=== PATIENT | female | born 1940 | race Caucasian/White ===

== ENCOUNTER 2020-09-22 18:43 | Observation (INO) ==
[2020-09-22 19:46] LABS: Basophils % 0.3 %; Eosinophils # 0.1 K/mcL (0.0-0.6); Eosinophils % 0.7 %; Hemoglobin 13.6 g/dL (11.5-15.4); Immature Granulocytes % 0.7 % (0-4); Lymphocytes # 1.3 K/mcL (0.6-4.6); Lymphocytes % 11.9 %; Mean Corpuscular Hemoglobin 32.2 pg (28.0-33.3); Mean Corpuscular Volume 94.8 fL (83.0-100.0); Monocytes # 0.6 K/mcL (0.0-1.3); Platelet Count 218 K/mcL (140-400); Red Blood Count 4.22 M/mcL (3.82-4.97); Red Cell Distribution Width 12.2 % (11.5-14.5); Segmented Neutrophils % 81.4 %
[2020-09-22] MEDS ORDERED: Ondansetron 4 MG/2 ML VIAL IVP ONE (19:49)
[2020-09-22] MEDS ORDERED: *HR* HYDROmorphone (PF) 1 MG/ML SYRINGE IVP ONE (19:49)
[2020-09-22 20:04] LABS: Alanine Aminotransferase 20 Units/L (7-52); Albumin 4.3 g/dL (3.5-5.7); Albumin/Globulin Ratio 1.4 (1.1-2.2); Alkaline Phosphatase 85 Units/L (34-104); Aspartate Amino Transferase 29 Units/L (13-39); BUN/Creatinine Ratio 35 (6-26); Bilirubin,Total 0.5 mg/dL (0.3-1.0); Blood Urea Nitrogen 30 mg/dL (8-23); Carbon Dioxide 28 mEq/L (23-29); Chloride 104 mEq/L (98-107); Glucose 111 mg/dL (70-105); Osmolality,Calculated 295 (280-300); Potassium 4.1 mEq/L (3.5-5.1); Sodium 139 mEq/L (136-145); Total Protein 7.3 g/dL (6.4-8.9); eGFR For African Americans > 60 (> 60); eGFR For Non-African Americans > 60 (> 60)
[2020-09-22] MEDS ORDERED: Naloxone 0.4 MG/ML INJ IVP PRN (21:55)
[2020-09-22] MEDS ORDERED: *HR* HYDROcodone/Acet 5/325 mg TABLET PO PRN (21:55)
[2020-09-22] MEDS ORDERED: Morphine Sulfate Immed Rel 30 MG TABLET PO PRN (21:55)
[2020-09-23] MEDS ORDERED: *HR* HYDROcodone/Acet 5/325 mg TABLET PO PRN (08:38)
[2020-09-23] MEDS: Multivit/Ca/Min/Fe/FA 1 TAB TABLET PO SCH (09:12)
[2020-09-23] MEDS: Aspirin 81 MG TAB.CHEW PO SCH (09:12)
[2020-09-23 13:20] LABS: Bilirubin,Urine Negative (Negative); Blood,Urine Trace-lysed (Negative); Clarity,Urine Clear (Clear); Color,Urine Yellow (Yellow); Glucose,Urine (UA) Normal (Normal); Ketones,Urine Negative (Negative); Leukocyte Esterase,Urine Negative (Negative); Nitrite,Urine Negative (Negative); Protein,Urine Negative (Neg-Trace); Urobilinogen,Urine Normal (Normal)
[2020-09-23] MEDS: *HR* HYDROcodone/Acet 5/325 mg TABLET PO PRN ×2 (15:51→22:27)
[2020-09-23] MEDS: 0.9 % Sodium Chloride 1,000 ML IVC SCH (22:27)
[2020-09-23] MEDS: Sennosides 8.6 MG TABLET PO SCH (22:27)
[2020-09-24] MEDS: *HR* Enoxaparin 40 MG/0.4 ML SYRINGE SQ SCH (06:11)
[2020-09-24] MEDS: Ondansetron 4 MG/2 ML VIAL IVP PRN (06:15)
[2020-09-24] MEDS: Aspirin 81 MG TAB.CHEW PO SCH (08:17)
[2020-09-24] MEDS: Sennosides 8.6 MG TABLET PO SCH ×2 (08:17→21:38)
[2020-09-24] MEDS: *HR* HYDROcodone/Acet 5/325 mg TABLET PO PRN ×2 (08:17→15:55)
[2020-09-24] MEDS: Multivit/Ca/Min/Fe/FA 1 TAB TABLET PO SCH (08:17)
[2020-09-24] MEDS: polyethylene glycoL 3350 17 GM POWD.PACK PO SCH (08:18)
[2020-09-24] MEDS: 0.9 % Sodium Chloride 1,000 ML IVC SCH (11:08)
[2020-09-25 05:26] LABS: Hematocrit 35.2 % (35.3-44.9); Hemoglobin 11.7 g/dL (11.5-15.4); Mean Corpuscular HGB Conc 33.2 g/dL (31.6-35.5); Mean Corpuscular Hemoglobin 32.1 pg (28.0-33.3); Mean Corpuscular Volume 96.7 fL (83.0-100.0); Platelet Count 158 K/mcL (140-400); Red Blood Count 3.64 M/mcL (3.82-4.97); Red Cell Distribution Width 12.4 % (11.5-14.5); White Blood Count 8.4 K/mcL (4.3-11.1)
[2020-09-25] MEDS: *HR* Enoxaparin 40 MG/0.4 ML SYRINGE SQ SCH (05:30)
[2020-09-25 05:42] LABS: Alanine Aminotransferase 11 Units/L (7-52); Albumin 3.4 g/dL (3.5-5.7); Albumin/Globulin Ratio 1.3 (1.1-2.2); Alkaline Phosphatase 72 Units/L (34-104); Aspartate Amino Transferase 21 Units/L (13-39); BUN/Creatinine Ratio 35 (6-26); Bilirubin,Total 0.4 mg/dL (0.3-1.0); Blood Urea Nitrogen 23 mg/dL (8-23); Calcium 8.8 mg/dL (8.6-10.3); Carbon Dioxide 28 mEq/L (23-29); Chloride 108 mEq/L (98-107); Globulin 2.7 g/dL (2.4-3.5); Glucose 121 mg/dL (70-105); Osmolality,Calculated 299 (280-300); Potassium 4.2 mEq/L (3.5-5.1); Sodium 142 mEq/L (136-145); Total Protein 6.1 g/dL (6.4-8.9); eGFR For African Americans > 60 (> 60); eGFR For Non-African Americans > 60 (> 60)
[2020-09-25] MEDS: polyethylene glycoL 3350 17 GM POWD.PACK PO SCH (08:02)
[2020-09-25] MEDS: Sennosides 8.6 MG TABLET PO SCH ×2 (08:02→20:33)
[2020-09-25] MEDS: Aspirin 81 MG TAB.CHEW PO SCH (08:02)
[2020-09-25] MEDS: Multivit/Ca/Min/Fe/FA 1 TAB TABLET PO SCH (08:02)
[2020-09-25] MEDS ORDERED: MOM Conc 10 ML UD.LIQ PO ONE (11:51)
[2020-09-26] MEDS: *HR* Enoxaparin 40 MG/0.4 ML SYRINGE SQ SCH (05:56)
[2020-09-26] MEDS: Aspirin 81 MG TAB.CHEW PO SCH (09:09)
[2020-09-26] MEDS: polyethylene glycoL 3350 17 GM POWD.PACK PO SCH (09:10)
[2020-09-26] MEDS: Multivit/Ca/Min/Fe/FA 1 TAB TABLET PO SCH (09:10)
[2020-09-26] MEDS: Sennosides 8.6 MG TABLET PO SCH ×2 (09:10→21:58)
[2020-09-26] MEDS: *HR* HYDROcodone/Acet 5/325 mg TABLET PO PRN ×2 (09:11→21:54)
[2020-09-26] MEDS: lisinopriL 10 MG TABLET PO SCH (12:45)
[2020-09-26] MEDS: Ondansetron ODT 4 MG TAB.RAPDIS SL PRN (18:00)
[2020-09-26] MEDS: hydrALAZINE 10 MG TABLET PO PRN (18:00)
[2020-09-27] MEDS: Ondansetron ODT 4 MG TAB.RAPDIS SL PRN ×2 (07:11→11:31)
[2020-09-27] MEDS: *HR* HYDROcodone/Acet 5/325 mg TABLET PO PRN (07:11)
[2020-09-27] MEDS: *HR* Enoxaparin 40 MG/0.4 ML SYRINGE SQ SCH (07:11)
[2020-09-27] MEDS ORDERED: Ondansetron ODT 4 MG TAB.RAPDIS SL PRN (11:32)
[2020-09-27] MEDS: Aspirin 81 MG TAB.CHEW PO SCH (11:32)
[2020-09-27] MEDS: Multivit/Ca/Min/Fe/FA 1 TAB TABLET PO SCH (11:33)
[2020-09-27] MEDS: polyethylene glycoL 3350 17 GM POWD.PACK PO SCH (11:33)
[2020-09-27] MEDS: Sennosides 8.6 MG TABLET PO SCH ×2 (11:33→20:26)
[2020-09-27] MEDS: lisinopriL 10 MG TABLET PO SCH ×2 (11:33→13:44)
[2020-09-27] MEDS ORDERED: Famotidine 20 MG/2 ML VIAL IVP ONE (14:03)
[2020-09-27] MEDS ORDERED: 0.9 % Sodium Chloride 500 ML IVC ONE (14:44)
[2020-09-27] MEDS: Ondansetron 4 MG/2 ML VIAL IVP PRN (15:01)
[2020-09-27] MEDS: hydrALAZINE 10 MG TABLET PO PRN (15:09)
[2020-09-27] MEDS: 0.9 % Sodium Chloride 1,000 ML IVC SCH (15:30)
[2020-09-28] MEDS: hydrALAZINE 10 MG TABLET PO PRN (00:41)
[2020-09-28] MEDS: *HR* Enoxaparin 40 MG/0.4 ML SYRINGE SQ SCH (03:38)
[2020-09-28] MEDS: 0.9 % Sodium Chloride 1,000 ML IVC SCH (03:40)
[2020-09-28] MEDS: Aspirin 81 MG TAB.CHEW PO SCH (08:13)
[2020-09-28] MEDS: lisinopriL 10 MG TABLET PO SCH (08:14)
[2020-09-28] MEDS: Multivit/Ca/Min/Fe/FA 1 TAB TABLET PO SCH (08:14)
[2020-09-28] MEDS: polyethylene glycoL 3350 17 GM POWD.PACK PO SCH (08:14)
[2020-09-28] MEDS: Sennosides 8.6 MG TABLET PO SCH (08:15)
[2020-09-28] MEDS: Ondansetron 4 MG/2 ML VIAL IVP PRN (09:18)
[2020-09-28] MEDS ORDERED: Famotidine 20 MG/2 ML VIAL IVP ONE (11:40)
[2020-09-28 11:55] VITALS: BP 173/90
[2020-09-28] MEDS ORDERED: Metoclopramide 10 MG/10 ML UD.LIQ PO SCH (12:00)
== END 2020-09-28 14:30 | disposition other institution (70) ==
LOC: INPGRE 18:43 → EMEROOGRE 18:43 → INPGRE 21:48 → SUATTDRO 09-23 18:51
PROVIDERS: ADMIT Student in an Organized Health Care Education/Training Program; ATTEND Family Medicine

== ENCOUNTER 2020-09-28 08:23 | Inpatient (IN) ==
[2020-09-28] MEDS ORDERED: polyethylene glycoL 3350 17 GM POWD.PACK PO PRN (14:57)
[2020-09-28] MEDS ORDERED: *HR* HYDROcodone/Acet 5/325 mg TABLET PO PRN ×2 (15:00)
[2020-09-28] MEDS ORDERED: Naloxone 0.4 MG/ML INJ IVP PRN (15:03)
[2020-09-28] MEDS ORDERED: Ondansetron 4 MG/2 ML VIAL IVP PRN (15:04)
[2020-09-28] MEDS: Metoclopramide 10 MG/10 ML UD.LIQ PO SCH (17:17)
[2020-09-28] MEDS: Sennosides 8.6 MG TABLET PO SCH (21:50)
[2020-09-29] MEDS: Metoclopramide 10 MG/10 ML UD.LIQ PO SCH ×5 (00:16→23:46)
[2020-09-29] MEDS: *HR* Enoxaparin 40 MG/0.4 ML SYRINGE SQ SCH (06:14)
[2020-09-29] MEDS ORDERED: lisinopriL 10 MG TABLET PO SCH (09:00)
[2020-09-29] MEDS: Aspirin Enteric Coated 81 MG Tablet PO SCH (10:23)
[2020-09-29] MEDS: Sennosides 8.6 MG TABLET PO SCH ×2 (10:24→20:09)
[2020-09-29] MEDS: Multivit/Ca/Min/Fe/FA 1 TAB TABLET PO SCH (10:24)
[2020-09-29] MEDS ORDERED: lisinopriL 10 MG TABLET PO STA (23:36)
[2020-09-30] MEDS: *HR* Enoxaparin 40 MG/0.4 ML SYRINGE SQ SCH (06:44)
[2020-09-30] MEDS: Metoclopramide 10 MG/10 ML UD.LIQ PO SCH ×3 (06:44→17:09)
[2020-09-30] MEDS: Ondansetron ODT 4 MG TAB.RAPDIS SL PRN (07:57)
[2020-09-30] MEDS: Aspirin Enteric Coated 81 MG Tablet PO SCH (09:08)
[2020-09-30] MEDS: Multivit/Ca/Min/Fe/FA 1 TAB TABLET PO SCH (09:08)
[2020-09-30] MEDS: Sennosides 8.6 MG TABLET PO SCH ×2 (09:09→20:05)
[2020-09-30] MEDS: lisinopriL 20 MG TABLET PO SCH (09:16)
[2020-09-30] MEDS: *HR* OxyCODONE Immed Rel 5 MG TABLET PO PRN (12:57)
[2020-10-01] MEDS: Metoclopramide 10 MG/10 ML UD.LIQ PO SCH ×4 (00:25→17:05)
[2020-10-01] MEDS: *HR* Enoxaparin 40 MG/0.4 ML SYRINGE SQ SCH (05:20)
[2020-10-01] MEDS: Multivit/Ca/Min/Fe/FA 1 TAB TABLET PO SCH (09:35)
[2020-10-01] MEDS: lisinopriL 20 MG TABLET PO SCH (09:35)
[2020-10-01] MEDS: Sennosides 8.6 MG TABLET PO SCH ×2 (09:35→20:14)
[2020-10-01] MEDS: Aspirin Enteric Coated 81 MG Tablet PO SCH (09:35)
[2020-10-02] MEDS: Metoclopramide 10 MG/10 ML UD.LIQ PO SCH ×4 (00:45→18:47)
[2020-10-02] MEDS: *HR* Enoxaparin 40 MG/0.4 ML SYRINGE SQ SCH (06:10)
[2020-10-02] MEDS: Multivit/Ca/Min/Fe/FA 1 TAB TABLET PO SCH (08:58)
[2020-10-02] MEDS: lisinopriL 20 MG TABLET PO SCH (08:58)
[2020-10-02] MEDS: Aspirin Enteric Coated 81 MG Tablet PO SCH (08:58)
[2020-10-02] MEDS: Sennosides 8.6 MG TABLET PO SCH ×2 (08:58→21:27)
[2020-10-02] MEDS: amLODIPine 5 MG TABLET PO SCH (10:48)
[2020-10-02] MEDS: *HR* OxyCODONE Immed Rel 5 MG TABLET PO PRN (21:27)
[2020-10-03] MEDS: Metoclopramide 10 MG/10 ML UD.LIQ PO SCH ×3 (00:10→11:43)
[2020-10-03] MEDS: *HR* Enoxaparin 40 MG/0.4 ML SYRINGE SQ SCH (05:40)
[2020-10-03] MEDS: Multivit/Ca/Min/Fe/FA 1 TAB TABLET PO SCH (09:05)
[2020-10-03] MEDS: lisinopriL 20 MG TABLET PO SCH (09:06)
[2020-10-03] MEDS: amLODIPine 5 MG TABLET PO SCH (09:06)
[2020-10-03] MEDS: Sennosides 8.6 MG TABLET PO SCH ×2 (09:06→21:23)
[2020-10-03] MEDS: Aspirin Enteric Coated 81 MG Tablet PO SCH (09:06)
[2020-10-03] MEDS: *HR* OxyCODONE Immed Rel 5 MG TABLET PO PRN (14:24)
[2020-10-04] MEDS: *HR* Enoxaparin 40 MG/0.4 ML SYRINGE SQ SCH (04:21)
[2020-10-04 04:32] LABS: Hematocrit 33.8 % (35.3-44.9); Hemoglobin 11.3 g/dL (11.5-15.4); Mean Corpuscular HGB Conc 33.4 g/dL (31.6-35.5); Mean Corpuscular Volume 95.8 fL (83.0-100.0); Mean Platelet Volume 9.4 fL (9.4-12.4); Platelet Count 269 K/mcL (140-400); Red Blood Count 3.53 M/mcL (3.82-4.97); White Blood Count 7.8 K/mcL (4.3-11.1)
[2020-10-04 04:50] LABS: Alanine Aminotransferase 17 Units/L (7-52); Albumin 3.4 g/dL (3.5-5.7); Albumin/Globulin Ratio 1.3 (1.1-2.2); Alkaline Phosphatase 107 Units/L (34-104); Aspartate Amino Transferase 21 Units/L (13-39); BUN/Creatinine Ratio 49 (6-26); Bilirubin,Total 0.4 mg/dL (0.3-1.0); Blood Urea Nitrogen 29 mg/dL (8-23); Calcium 9.1 mg/dL (8.6-10.3); Carbon Dioxide 28 mEq/L (23-29); Chloride 106 mEq/L (98-107); Globulin 2.6 g/dL (2.4-3.5); Glucose 100 mg/dL (70-105); Magnesium 1.9 mg/dL (1.6-2.6); Osmolality,Calculated 296 (280-300); Potassium 3.9 mEq/L (3.5-5.1); Sodium 140 mEq/L (136-145); eGFR For African Americans > 60 (> 60); eGFR For Non-African Americans > 60 (> 60)
[2020-10-04] MEDS: amLODIPine 5 MG TABLET PO SCH (10:04)
[2020-10-04] MEDS: Multivit/Ca/Min/Fe/FA 1 TAB TABLET PO SCH (10:04)
[2020-10-04] MEDS: lisinopriL 20 MG TABLET PO SCH (10:04)
[2020-10-04] MEDS: Sennosides 8.6 MG TABLET PO SCH ×2 (10:04→20:46)
[2020-10-04] MEDS: Aspirin Enteric Coated 81 MG Tablet PO SCH (10:04)
[2020-10-04] MEDS: *HR* OxyCODONE Immed Rel 5 MG TABLET PO PRN (11:05)
[2020-10-04] MEDS: Cholecalciferol (D-3) 1,000 UNIT (25MCG) TABLET PO SCH (15:08)
[2020-10-05] MEDS: *HR* Enoxaparin 40 MG/0.4 ML SYRINGE SQ SCH (05:58)
[2020-10-05] MEDS: amLODIPine 5 MG TABLET PO SCH (09:04)
[2020-10-05] MEDS: Aspirin Enteric Coated 81 MG Tablet PO SCH (09:04)
[2020-10-05] MEDS: Sennosides 8.6 MG TABLET PO SCH ×2 (09:05→21:02)
[2020-10-05] MEDS: Multivit/Ca/Min/Fe/FA 1 TAB TABLET PO SCH (09:05)
[2020-10-05] MEDS: Cholecalciferol (D-3) 1,000 UNIT (25MCG) TABLET PO SCH (09:05)
[2020-10-05] MEDS: lisinopriL 20 MG TABLET PO SCH (09:05)
[2020-10-05] MEDS: *HR* OxyCODONE Immed Rel 5 MG TABLET PO PRN ×2 (13:13→21:01)
[2020-10-06] MEDS: *HR* Enoxaparin 40 MG/0.4 ML SYRINGE SQ SCH (06:00)
[2020-10-06] MEDS: *HR* OxyCODONE Immed Rel 5 MG TABLET PO PRN ×2 (06:07→11:00)
[2020-10-06] MEDS: Aspirin Enteric Coated 81 MG Tablet PO SCH (09:31)
[2020-10-06] MEDS: Multivit/Ca/Min/Fe/FA 1 TAB TABLET PO SCH (09:31)
[2020-10-06] MEDS: Sennosides 8.6 MG TABLET PO SCH ×2 (09:31→20:33)
[2020-10-06] MEDS: Cholecalciferol (D-3) 1,000 UNIT (25MCG) TABLET PO SCH (09:32)
[2020-10-06] MEDS: amLODIPine 5 MG TABLET PO SCH (09:32)
[2020-10-06] MEDS: lisinopriL 20 MG TABLET PO SCH (09:32)
[2020-10-07] MEDS: *HR* Enoxaparin 40 MG/0.4 ML SYRINGE SQ SCH (06:36)
[2020-10-07] MEDS: Aspirin Enteric Coated 81 MG Tablet PO SCH (09:28)
[2020-10-07] MEDS: Cholecalciferol (D-3) 1,000 UNIT (25MCG) TABLET PO SCH (09:28)
[2020-10-07] MEDS: Multivit/Ca/Min/Fe/FA 1 TAB TABLET PO SCH (09:29)
[2020-10-07] MEDS: Sennosides 8.6 MG TABLET PO SCH ×2 (09:29→21:51)
[2020-10-07] MEDS: amLODIPine 5 MG TABLET PO SCH (09:29)
[2020-10-07] MEDS: lisinopriL 20 MG TABLET PO SCH (09:29)
[2020-10-07] MEDS: Ondansetron ODT 4 MG TAB.RAPDIS SL PRN (12:12)
[2020-10-08] MEDS: *HR* Enoxaparin 40 MG/0.4 ML SYRINGE SQ SCH (05:46)
[2020-10-08] MEDS: Sennosides 8.6 MG TABLET PO SCH ×2 (08:40→21:27)
[2020-10-08] MEDS: Aspirin Enteric Coated 81 MG Tablet PO SCH (08:40)
[2020-10-08] MEDS: Cholecalciferol (D-3) 1,000 UNIT (25MCG) TABLET PO SCH (08:40)
[2020-10-08] MEDS: Multivit/Ca/Min/Fe/FA 1 TAB TABLET PO SCH (08:41)
[2020-10-08] MEDS: amLODIPine 5 MG TABLET PO SCH (08:41)
[2020-10-08] MEDS: lisinopriL 20 MG TABLET PO SCH (08:41)
[2020-10-08] MEDS: Ondansetron ODT 4 MG TAB.RAPDIS SL PRN (08:46)
[2020-10-09] MEDS: *HR* Enoxaparin 40 MG/0.4 ML SYRINGE SQ SCH (05:15)
[2020-10-09] MEDS: Ondansetron ODT 4 MG TAB.RAPDIS SL PRN (05:16)
[2020-10-09] MEDS: Aspirin Enteric Coated 81 MG Tablet PO SCH (08:07)
[2020-10-09] MEDS: Sennosides 8.6 MG TABLET PO SCH ×2 (08:07→20:51)
[2020-10-09] MEDS: amLODIPine 5 MG TABLET PO SCH (08:07)
[2020-10-09] MEDS: lisinopriL 20 MG TABLET PO SCH (08:07)
[2020-10-09] MEDS: Cholecalciferol (D-3) 1,000 UNIT (25MCG) TABLET PO SCH (08:07)
[2020-10-09] MEDS: Multivit/Ca/Min/Fe/FA 1 TAB TABLET PO SCH (08:08)
[2020-10-10] MEDS: *HR* Enoxaparin 40 MG/0.4 ML SYRINGE SQ SCH (05:53)
[2020-10-10] MEDS: Ondansetron ODT 4 MG TAB.RAPDIS SL PRN (05:53)
[2020-10-10] MEDS: Cholecalciferol (D-3) 1,000 UNIT (25MCG) TABLET PO SCH (08:56)
[2020-10-10] MEDS: Aspirin Enteric Coated 81 MG Tablet PO SCH (08:57)
[2020-10-10] MEDS: Multivit/Ca/Min/Fe/FA 1 TAB TABLET PO SCH (08:57)
[2020-10-10] MEDS: Sennosides 8.6 MG TABLET PO SCH ×2 (08:57→20:34)
[2020-10-10] MEDS: lisinopriL 20 MG TABLET PO SCH (08:57)
[2020-10-10] MEDS: amLODIPine 5 MG TABLET PO SCH (08:57)
[2020-10-11 05:02] LABS: Basophils # 0.1 K/mcL (0.0-0.2); Basophils % 0.9 %; Eosinophils # 0.2 K/mcL (0.0-0.6); Eosinophils % 3.5 %; Hematocrit 34.9 % (35.3-44.9); Hemoglobin 11.6 g/dL (11.5-15.4); Immature Granulocytes % 0.3 % (0-4); Lymphocytes # 1.5 K/mcL (0.6-4.6); Lymphocytes % 21.4 %; Mean Corpuscular HGB Conc 33.2 g/dL (31.6-35.5); Mean Corpuscular Volume 96.4 fL (83.0-100.0); Mean Platelet Volume 9.3 fL (9.4-12.4); Monocytes # 0.5 K/mcL (0.0-1.3); Monocytes % 7.9 %; Neutrophils # 4.5 K/mcL (1.6-8.9); Platelet Count 399 K/mcL (140-400); Red Blood Count 3.62 M/mcL (3.82-4.97); Red Cell Distribution Width 12.9 % (11.5-14.5); White Blood Count 6.8 K/mcL (4.3-11.1)
[2020-10-11 05:16] LABS: BUN/Creatinine Ratio 43 (6-26); Blood Urea Nitrogen 26 mg/dL (8-23); Calcium 9.2 mg/dL (8.6-10.3); Carbon Dioxide 30 mEq/L (23-29); Chloride 104 mEq/L (98-107); Glucose 100 mg/dL (70-105); Osmolality,Calculated 295 (280-300); Sodium 140 mEq/L (136-145); eGFR For African Americans > 60 (> 60); eGFR For Non-African Americans > 60 (> 60)
[2020-10-11] MEDS: *HR* Enoxaparin 40 MG/0.4 ML SYRINGE SQ SCH (05:18)
[2020-10-11 08:22] VITALS: BP 125/72
[2020-10-11] MEDS: lisinopriL 20 MG TABLET PO SCH (09:17)
[2020-10-11] MEDS: Cholecalciferol (D-3) 1,000 UNIT (25MCG) TABLET PO SCH (09:17)
[2020-10-11] MEDS: Multivit/Ca/Min/Fe/FA 1 TAB TABLET PO SCH (09:17)
[2020-10-11] MEDS: Sennosides 8.6 MG TABLET PO SCH (09:18)
[2020-10-11] MEDS: amLODIPine 5 MG TABLET PO SCH (09:18)
[2020-10-11] MEDS: Aspirin Enteric Coated 81 MG Tablet PO SCH (09:18)
== END 2020-10-11 12:52 | disposition home or self-care (01) | DRG 561 ==
LOC: INPGRE 14:28
PROVIDERS: ADMIT Family Medicine; ATTEND Family Medicine